=== PATIENT | male | born 1980 ===

== ENCOUNTER 2024-09-22 22:43 | Emergency (ER) | payer BC, SELFPAY ==
--- NOTE | ~2024-09-22 | XR_ITS ---
AP view of the pelvis and AP and lateral views of the right hip Clinical history: Pain Findings: There is a probable acute fracture isolated to the superior aspect of the right greater tro chanter. No other fracture or dislocation seen. Bilateral hip and SI joint spaces are preserved. Soft tissues are unremarkable. Impression: Probable acute fracture isolated to the superior aspect of the right greater trochanter. Reviewed, dictated and finalized at location . Impression: Probable acute fracture isolated to the superior aspect of the right greater tr ochanter.
--- NOTE | ~2024-09-22 | CT_ITS ---
Noncontrast CT scan of the right hip CLINICAL HISTORY: greater trochanter fracture TECHNIQUE: Axial noncontrast imaging of the right hip was performed. Sagittal and coronal reformatted images were constructed. Dose reduction technique was used on this scan by utilizing automated expos ure control and iterative reconstruction technique. The dose-length product (DLP) was 174.53 mGy-cm. FINDINGS: There is a transverse, essentially nondisplaced fracture isolated to the superior aspect of the right greater trochanter (coronal image 44 for example). No extension across the intertrochanter ic region or femoral neck. Right hip joint space is intact. No joint effusion. Visualized musculature unremarkable. No soft tissue mass or fluid collection seen. IMPRESSION: Acute fracture isolated to the superior aspect of the right greater trochanter, as detailed above. Reviewed, dictated and finalized at location M.
--- OUTSIDE RECORDS SUMMARY | 2024-09-22 22:44 | XMS_ITS | Encounter Summary ---
Author Organization [facility] Address [address] [place] [address] Phone Care Team Providers Care Medical Office Assistant Instructor Name Role Phone Sumaya Downing MD Unavailable Donal Bernard MD Primary Care Provider [phone] Provider, None Primary Care Provider Unavailabl e Reason for Visit * Reason Comments Medication Refill Encounter Details Date Type Department Care Team (Late st Contact Info) Description 02/08/2020 Refill [facility] - Endocrinology - [place] [address] [place] [address] Sumaya Downing MD [address] [address] Medication Refill Social History Tobacco Use Types Packs/Day Years Used Date Smoking Tobacco: Former Cigarettes Smokeless Tobacco: Never Alcohol Use Standard Drinks/Week Comments No 0 (1 standard drink = 0.6 oz pur e alcohol) Sexually Active Control Partners Comments Yes Female Sex and Gender Information Value Date Recorded Sex Assigned at Not on file Legal Sex Male 11:29 PM CDT Gender Identity Not on file Sexual Orientation Not on file documented as of this encounter Miscellaneous Notes * Telephone Encounter - Sandra Fernandez RN - 02/14/2020 11:24 AM MARINE UNDERWRITER Refill request received. Order pended. Requested Prescriptions Pending Prescriptions Disp Refills ??? insulin lispro (HumaLOG) 100 UNIT/ML Solution [Pharmacy Med Name: INSULIN LISPRO 100U/ML VIAL 10ML] 20 mL Sig: USE DIRECTED WITH INSULIN PUMP. MAX OF 50 UNIT PER DAY Next appt: Message left to schedule follow up. NE UNDERWRITER documented in this encounter Plan of Treatment Not on file documented as of this encounter Visit Diagnoses Not on filedocumented in this encounter Care Teams Medical Office Assistant Instructor Relationship Specialty Start Date End Date Donal Bernard MD [address] [place] [address] PCP - General Family Medicine 04/17/16 11/22/20 Provider, None MD PCP - General 11/23/20 Sumaya Downing MD [address] [address] Consulting Physician Internal Medicine 04/17/16 documented as of this encounter
--- OUTSIDE RECORDS SUMMARY | 2024-09-22 22:44 | XMS_ITS | Clinical Summary ---
Author Organization [facility] Address [address], [address] [address] Phone Care Team Providers Care Basket Filler Name Role Phone Sumaya Downing MD Unavailable Provider, None Primary Care Provider Unavailabl e Allergies No known active allergies Medications TRUEPLUS LANCETS 30G MiscIndication s:Type 1 diabetes mellitus without complication,H ypoglycemia Please monitor blood sugar before each meal, snack, and at bedtime 400 Each 3 04/23/19 17 Active Blood Glucose Monitoring Suppl (TRUE METRIX METER) w/Device KitIndications :Type 1 diabetes mellitus without complication,H ypoglycemia Please monitor blood sugar before each meal, snack, and at bedtime 1 Kit 0 04/23/19 17 Active TRUE METRIX BLOOD GLUCOSE TEST StripIndicatio ns:Type 1 diabetes mellitus without complication,H ypoglycemia MONITOR BLOOD SUGAR BEFORE EACH MEAL, SNACK, AND AT BEDTIME 400 Strip 08/29/19 18 Active Glucose Blood (OneTouch Verio) Strip Test blood glucose 4x daily. 400 Strip 3 01/02/20 21 Active Blood Glucose Monitoring Suppl (OneTouch Verio) w/Device Kit 1 Kit by Does not apply route daily. Test blood glucose 4x daily. 1 Kit 01/02/20 21 Active OneTouch Delica Lancets 33G Misc 1 Lancet by Does not apply route 4 times daily. 400 Lancet 3 01/02/20 21 Active Insulin Syringe-Needle U-100 (INSULIN SYRINGE .5CC/31GX5/16 ) 31G X 5/16 0.5 ML Misc 5 times a day 500 Each 3 05/11/19 22 Active Continuous Blood Gluc Sensor (Dexcom G7 Sensor) Misc Every 10 days 9 Each 1 04/09/19 24 Active Continuous Blood Gluc Independent Film Maker (Dexcom G7 Independent Film Maker) Device Check blood glucose before each meal and at bedtime 1 Each 04/09/19 24 Active Insulin Disposable Pump (Omnipod 5 G6 Intro, Gen 5,) Kit Change pod every 3 days 1 Kit 04/16/19 24 Active insulin glargine (Lantus) 100 UNIT/ML Solution 24 Units by Subcutaneous route daily. 10 mL 1 04/21/19 24 Active insulin lispro (HumaLOG) 100 UNIT/ML Solution PER INSULIN PUMP SETTINGS, UP TO 60 UNITS UNDER THE SKIN PER DAY 60 mL 1 07/17/19 25 Active Insulin Disposable Pump (Omnipod 5 UltT3W1 Pods Gen 5) Misc CHANGE EVERY 2 TO 3 DAYS 40 Each 1 08/28/19 25 Active Insulin Disposable Pump (Omnipod 5 G7 Pods, Gen 5,) Misc Every 2-3 days 45 Each 1 11/27/19 24 025 Discontinued Active Problems Problem Noted Date Diagnosed Date Tobacco use 06/29/2019 Insulin pump titration 08/13/2016 Type 1 diabetes mellitus without complication Encounters Date Type Department Care Team Description 08/23/2024 [facility]ill [facility] End[facility] [address] [place] [address] Sumaya Downing MD Medication Refill 07/14/2024 [facility]ill [facility] Endocr[facility] [address] [place] [address] Sumaya Downing MD Medication Refill from Last 3 Months Immunizations Immunization Administration Dates Next Due TDAP Vaccine 09/25/2021 Social History Tobacco Use Types Packs/Day Years Used Date Smoking Tobacco: Former Cigarettes Smokeless Tobacco: Never Tobacco Cessation:Counseling Given: No Alcohol Use Standard Drinks/Week Comments No 0 (1 standard drink = 0.6 oz pur e alcohol) Sexually Active Control Partners Comments Yes Female Sex and Gender Information Value Date Recorded Sex Assigned at Not on file Legal Sex Male 11:29 PM CDT Gender Identity Not on file Sexual Orientation Not on file Last Filed Vital Signs Vital Sign Reading Time Taken Comments Blood Pressure 132/74 11/27/2023 3:35 PM CDT Pulse 101 11/27/2023 3:35 PM CDT Temperature 36.6 C (97.8 F) 11/27/2023 3:35 PM CDT Respiratory Rate 20 11/27/2023 3:35 PM CDT Oxygen Saturation 97% 11/27/2023 3:35 PM CDT Inhaled Oxygen Concentration - - Weight 64.7 kg (142 lb 9.6 oz) 11/27/2023 3:35 P M CDT Height 170.2 cm (5' 7) 01/01/2021 10:33 AM USED CAR LOT ATTENDANT Body Mass Index 22.33 01/01/2021 10:33 AM USED CAR LOT ATTENDANT Plan of Treatment Health Maintenance Due Date Last Done Comments Diabetes: Eye Exam 1982 Diabetes: Foot Exam 1982 Hepatitis C Virus (HCV) Screening 1982 Hepatitis B Immunization (1 of 3 - 19+ 3-dose series) 2001 Pneumococcal Immunization Combined (1 of 2 - PCV) 2001 Human Papillomavirus (HPV) Immunization (1 - 3-dose SCDM series) 2009 Diabetes: Nephropathy Screening 01/15/2019 01/15/2018, 01/07/2017 SARS-COV-2 Immunization ( season) 2023 Diabetes: Hemoglobin A1c 05/27/2024 024, 04/08/2023, 01/01/2021, Additional history exists Influenza Immunization (#1) 2024 Td Immunization Every 10 Years (Adults With 1 Tdap) 09/26/2031 09/25/2021 Respiratory Syncytial Virus (RSV) Immunization (Adult) (1 - 1-dose 75+ series) 2057 DTaP/Tdap/Td Immunization Discontinued 09/25/2021 TdaP Immunization Discontinued 09/25/2021 Meningococcal Immunization (ACWY) Aged Out No longer eligible based on patient's age to complete this topic Rotavirus Immunization Aged Out No lo nger eligible based on patient's age to complete this topic Procedures Procedure Name Priority Date/Time Associated Diagnosis Comments POCT GLYCOSYLATED HEMOGLOBIN Routine 11/27/2023 3:39 PM CDT Type 1 diabetes mellitus without complication (HCC) CMP (COMPREHENSIVE METABOLIC PANEL) Routine 01/15/2018 11:26 AM USED CAR LOT ATTENDANT Type 1 diabetes mellitus without complication (HCC) from Last 3 Months or Most Recently Relevant to Health Maintenance Results * (ABNORMAL) POCT GLYCOSYLATED HEMOGLOBIN (11/27/2023 3:39 PM CDT) Pathologist [facility] HGB-A1C 8.8(A) 4 - 6 % Blood 11/27/2023 3:39 PM CDT Sumaya Downing MD POINT OF CARE TESTING (MANUAL) F inal Result * (ABNORMAL) CMP (COMPREHENSIVE METABOLIC PANEL) (01/15/2018 11:26 AM USED CAR LOT ATTENDANT) [facility] SODIUM 138 136 - 144 mmol/L 01/15/2018 3:04 PM [facility] POTASSIUM 5.3(H) 3.5 - 5.1 mmol/L 01/15/2018 3:04 PM [facility] CHLORIDE 100 100 - 110 mmol/L 01/15/2018 3:04 PM [facility] CO2, VENOUS 30 22 - 32 mmol/L 01/15/2018 3:04 PM [facility] ANION GAP 13.3 8.0 - 20.0 mmol/L 01/15/2018 3:04 PM [facility] GLUCOSE 287(H) 70 - 99 mg/dL 01/15/2018 3:04 PM [facility] BUN 10 6 - 20 mg/dL 01/15/2018 3:04 PM [facility] CREATININE, BLOOD 0.86 0.80 - 1.30 mg/dL 01/15/2018 3:04 PM [facility] BUN/CREATININE RATIO 12 12 - 20 ratio 01/15/2018 3:04 PM [facility] TOTAL PROTEIN 6.8 6.0 - 8.3 g/dL 01/15/2018 3:04 PM [facility] ALBUMIN 4.7 3.5 - 5.2 g/dL 01/15/2018 3:04 PM [facility] Comment: The colormetric methods used for the determination of Albumin may lead to falsely elevated test results in patients suffering from renal failure or insufficiency due to interference with other proteins. A/G RATIO 2.2(H) 1.0 - 2.0 01/15/2018 3:04 PM USED CAR LOT ATTENDANT [facility] CALCIUM 9.7 8.9 - 10.3 mg/dL 01/15/2018 3:04 PM USED CAR LOT ATTENDANT [facility] T BILI 0.6 <=1.2 mg/dL 01/15/2018 3:04 PM USED CAR LOT ATTENDANT [facility] SGOT (AST) 21 <=40 U/L 01/15/2018 3:04 PM [facility] SGPT (ALT) 16 <=41 U/L 01/15/2018 3:04 PM USED CAR LOT ATTENDANT [facility] ALKALINE PHOSPHATASE 90 40 - 130 U/L 01/15/2018 3:04 PM USED CAR LOT ATTENDANT [facility] GFR, EST. NONAFRICAN >60 >=60 01/15/2018 3:04 PM USED CAR LOT ATTENDANT [facility] GFR, EST. >60 >=60 018 3:04 PM [facility] Comment: Creatinine Clearance is the preferred criteria for selecting drug dose adjustments in renally impaired patients. The GFR is provided as additional pertinent clinical information. GFR is reported in mL/min/1.73 sq m. Blood specimen (specimen) Venipuncture / Unknown 01/15/2018 11:26 AM USED CAR LOT ATTENDANT 01/15/2018 2:14 PM USED CAR LOT ATTENDANT us Sumaya Downing MD CHEMISTRY ORDERABLES Final Resul t [facility] [address] [place] [address] from Last 3 Months or Most Recently Relevant to Health Maintenance Insurance MEDICAID [place] Care Teams Basket Filler Relationship Specialty Start Date End Date Provider, None [place] PCP - General 11/23/20 Sumaya Downing MD [address] [phone] Consulting Physician Internal Medicine 04/17/16
[2024-09-22 23:03] VITALS: BP 111/74; PULSE 85; RESP 18; TEMP 36.5; O2SAT 99
[2024-09-23 01:15] VITALS: BP 115/79; PULSE 73; RESP 16; TEMP 36.6; O2SAT 98
--- OUTSIDE RECORDS SUMMARY | 2024-09-23 01:36 | XMS_ITS | Encounter Summary ---
Author Organization [facility] Address [address] [place] [address] Phone Care Team Providers Care Electrician'S Helper Name Role Phone Sumaya Downing MD Unavailable Donal Bernard MD Primary Care Provider [phone] Provider, None Primary Care Provider Unavailabl e Reason for Visit * Reason Comments Medication Refill Encounter Details Date Type Department Care Team (Late st Contact Info) Description 02/08/2020 Refill [facility] - Endocrinology - [place] [address] [place] [address] Sumaya Downing MD [address] [address] Medication Refill Social History Tobacco [...] Sandra Fernandez RN - 02/14/2020 11:24 AM PHONE BANKER Refill request received. Order pended. Requested Prescriptions Pending Prescriptions Disp Refills ??? insulin lispro (HumaLOG) 100 UNIT/ML Solution [Pharmacy Med Name: INSULIN LISPRO 100U/ML VIAL 10ML] 20 mL Sig: USE DIRECTED WITH INSULIN PUMP. MAX OF 50 UNIT PER DAY Next appt: Message left to schedule follow up. E BANKER documented in this encounter Plan of Treatment Not on file documented as of this encounter Visit Diagnoses Not on filedocumented in this encounter Care Teams Electrician'S Helper Relationship Specialty Start Date End Date Donal Bernard MD [address] [place] [address] PCP - General Family Medicine 04/17/16 11/22/20 Provider, None MD PCP - General 11/23/20 Sumaya Downing MD [address] [phone] Consulting Physician Internal Medicine 04/17/16 documented as of this encounter
--- OUTSIDE RECORDS SUMMARY | 2024-09-23 01:37 | XMS_ITS | Clinical Summary ---
Author Organization [facility] Address [address], [address] [address] Phone Care Team Providers Care Clipper And Turner Name Role Phone Sumaya Downing MD Unavailable [...] 1 04/09/19 24 Active Continuous Blood Gluc Transportation Maintenance Operator (Dexcom G7 Transportation Maintenance Operator) Device Check blood glucose before each meal [...] 25 Active Insulin Disposable Pump (Omnipod 5 [id number] Pods Gen 5) Misc CHANGE EVERY 2 [...] Type Department Care Team Description 08/23/2024 [facility] [address] [place] [address] Sumaya Downing MD Medication Refill 07/14/2024 [facility] [address] [place] [address] Sumaya Downing MD Medication Refill from Last [...] 170.2 cm (5' 7) 01/01/2021 10:33 AM HORSE GROOMER Body Mass Index 22.33 01/01/2021 10:33 AM HORSE GROOMER Plan of Treatment Health Maintenance Due Date [...] (COMPREHENSIVE METABOLIC PANEL) Routine 01/15/2018 11:26 AM HORSE GROOMER Type 1 diabetes mellitus without complication (HCC) from Last 3 Months or Most Recently Relevant to Health Maintenance Results * (ABNORMAL) POCT GLYCOSYLATED HEMOGLOBIN (11/27/2023 3:39 PM CDT) Pathologist [facility] HGB-A1C 8.8(A) 4 - 6 % Blood 11/27/2023 3:39 PM CDT Sumaya Downing MD POINT OF CARE TESTING (MANUAL) F inal Result * (ABNORMAL) CMP (COMPREHENSIVE METABOLIC PANEL) (01/15/2018 11:26 AM HORSE GROOMER) [facility] SODIUM 138 136 - 144 mmol/L 01/15/2018 3:04 PM [facility] POTASSIUM 5.3(H) 3.5 - 5.1 mmol/L 01/15/2018 3:04 PM [facility] CHLORIDE 100 100 - 110 mmol/L 01/15/2018 3:04 PM [facility] CO2, VENOUS 30 22 - 32 mmol/L 01/15/2018 3:04 PM [facility] ANION GAP 13.3 8.0 - 20.0 mmol/L 01/15/2018 3:04 PM [facility] GLUCOSE 287(H) 70 - 99 mg/dL 01/15/2018 3:04 PM [facility] BUN 10 6 - 20 mg/dL 01/15/2018 3:04 PM [facility] CREATININE, BLOOD 0.86 0.80 - 1.30 mg/dL 01/15/2018 3:04 PM [facility] BUN/CREATININE RATIO 12 12 - 20 ratio 01/15/2018 3:04 PM [facility] TOTAL PROTEIN 6.8 6.0 - 8.3 g/dL 01/15/2018 3:04 PM [facility] ALBUMIN 4.7 3.5 - 5.2 g/dL 01/15/2018 3:04 PM [facility] Comment: The colormetric methods used for the determination of Albumin may lead to falsely elevated test results in patients suffering from renal failure or insufficiency due to interference with other proteins. A/G RATIO 2.2(H) 1.0 - 2.0 01/15/2018 3:[address] [facility] CALCIUM 9.7 8.9 - 10.3 mg/dL 01/15/2018 3:[address] [facility] T BILI 0.6 <=1.2 mg/dL 01/15/2018 3:[address] [facility] SGOT (AST) 21 <=40 U/L 01/15/2018 3:04 PM [facility] SGPT (ALT) 16 <=41 U/L 01/15/2018 3:[address] [facility] ALKALINE PHOSPHATASE 90 40 - 130 U/L 01/15/2018 3:[address] [facility] GFR, EST. NONAFRICAN >60 >=60 01/15/2018 3:[address] [facility] GFR, EST. >60 >=60 018 3:04 PM [facility] Comment: Creatinine Clearance is the preferred criteria for selecting drug dose adjustments in renally impaired patients. The GFR is provided as additional pertinent clinical information. GFR is reported in mL/min/1.73 sq m. Blood specimen (specimen) Venipuncture / Unknown 01/15/2018 11:26 AM HORSE GROOMER 01/15/2018 2:14 PM HORSE GROOMER us Sumaya Downing MD CHEMISTRY ORDERABLES Final Resul t [facility] [address] [place] [address] from Last 3 Months or Most Recently Relevant to Health Maintenance Insurance MEDICAID [place] Care Teams Clipper And Turner Relationship Specialty Start Date End Date Provider, None [place] PCP - General 11/23/20 Sumaya Downing MD [address] [phone] Consulting Physician Internal Medicine 04/17/16
--- NOTE | 2024-09-23 02:07 | ED.LOWEXIN ---
HPI - Extremity Injury (Lower) General Chief Complaint: Extremity Injury, Lower Stated Complaint: right hip pain Time Seen by Provider: 09/23/24 01:30 Source: patient Mode of arrival: ambulatory Limitations: no limitations History of Present Illness HPI Narrative: Patient with insulin-dependent diabetes mellitus presents with right hip pain. Friday he accidentally fell approximately 4 ft off of a ladder and landed on his right hip. He had a pocket knife in his pocket at that time and thus landed on this as well. He thought the pain would get better but it does not seem to be he. He reports a stabbing 3/10 in severity pain. He is not on anticoagulation. 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 He states that he is able to perform some hip flexion and extension but has tremendous difficulty with hip abduction/adduction i.e. swinging his leg. He says he intermittently has paresthesias in his toes. At home he has been taking 600 mg ibuprofen p.r.n.. He reports being slightly hard of hearing, does better when mouth not covered with mask. Related Data Home Medications ?Medication ?Instructions ?Recorded ?Confirmed ?Last Taken ?Type insulin lispro 100 unit/mL 1 sliding scale dose subcut 12/29/18 Unknown History subcutaneous solution (Humalog DIRECTED U-100 Insulin) Allergies Allergy/AdvReac Type Severity Reaction Status Date / Time No Known Allergies Allergy Verified 09/22/24 23:22 [facility] Past Medical History Medical History Type 1 diabetes Surgical History Surgical History (Updated 12/29/18 @ 08:06 by Keena Schneider) No significant past surgical history Social History Social History Smoking packs per day: 1 Smoking cigarettes per day: 20.0 Years smoked: 15 Smoking pack-years: 15.00 Smoking status: Current every day smoker Tobacco type: cigarettes Occupation/Education: occupation 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 Gender identity (if verbalized by the patient): Male Exam Narrative: GENERAL: Well-appearing, well-nourished, and in no acute distress. HEAD: Normocephalic, atraumatic. EYES: Non injected, non icteric ENT: Nares clear, no rhinorrhea or epistaxis. Gross auditory acuity intact. NECK: Supple. No meningismus. CHEST: Speaking in full sentences. No respiratory distress. HEART: Regular rate and rhythm. . ABDOMEN: Soft, nondistended. No rigidity or guarding. Not peritoneal EXTREMITIES: No lower extremity edema. Patient performs some R hip flexion. HIP/PELVIS: No tenderness to palpation of the hip. SKIN: Warm, dry, no rash. No overlying ecchymosis or laceration or abrasion. NEURO: No focal deficits. Alert and oriented. Answering questions. Following commands. Normal speech without aphasia or dysarthria. Observed standing and bearing weight though difficulty with R hip abduction/adduction. Sensation intact throughout leg. PSYCH: Normal mood and affect. Course Vital Signs Vital signs: Vital Signs Temperature 97.7 F 09/22/24 23:03 Pulse Rate 85 09/22/24 23:03 Respiratory Rate 18 09/22/24 23:03 Blood Pressure 111/74 09/22/24 23:03 Pulse Oximetry 99 09/22/24 23:03 Oxygen Delivery Room Air 09/22/24 23:03 Temperature 98 F 09/23/24 01:15 Pulse Rate 79 09/23/24 05:22 Respiratory Rate 18 09/23/24 05:22 Blood Pressure 122/77 09/23/24 05:22 Pulse Oximetry 100 09/23/24 05:22 Oxygen Delivery Room Air 09/23/24 01:15 MDM - Extremity Injury (Lower) MDM Narrative Medical decision making narrative: 44-year-old male with insulin-dependent diabetes mellitus reports continued right hip pain particularly posteriorly after falling approximately 4 ft off of a ladder on Friday and landing on his hip. Had a pocket knife in his pocket at the time so landed on this. In the emergency department they are afebrile with vital signs within normal limits. Hyperglycemia without anion gap acidosis. Pseudo hyponatremia. Urine with sterile pyuria and glucosuria. Plain film imaging shows trochanter fracture, isolated. Labs will be obtained. Patient does inquire to the nurse if it is really necessary for him to stay. Discussed patient with on-call orthopedic surgeon Dr. Mcclendon who requests that CT hip be performed. He notes that if this she continues to show an isolated nondisplaced trochanteric fracture, a it is reasonable for patient to be discharged with crutches and partial weight-bearing status and follow-up in the office. CT performed as below. Patient provided crutches and crutch training. Discharged with prescriptions for analgesic medications including opiates for breakthrough pain. Given contact information for orthopedic surgeon and advised to call in the morning to make an appointment. He verifies understanding and is in agreement with the plan. Given return precautions as well. Otherwise stable for discharge. Differential Diagnosis Differential diagnosis: Likely fracture of femur, fracture of hip and other (Bony contusion, labral tear, hematoma) Lab Data Attestation: I reviewed the patient's lab results. 09/23/24 02:40 09/23/24 02:40 Labs: Lab Results 09/23/24 09/23/24 Range/Units 02:40 02:47 WBC 5.0 (4.5-10.0) K/mm3 RBC 3.99 L (4.6-6.20) M/mm3 Hgb 11.8 L (14.0-18.0) g/dL Hct 35.8 L (42.0-52.0) % MCV 89.7 (80-100) fl MCH 29.6 (26-34) pg MCHC 33.0 (32-36) g/dl RDW 12.3 (11.5-14.5) % Plt Count 173 (150-375) k/mm3 MPV 9.5 (7.4-10.4) fl Immature Gran % (Auto) 0.4 (0-0.5) % Neut % (Auto) 57.2 (45.5-73.1) % Lymph % (Auto) 30.6 (18.3-44.2) % Eddy % (Auto) 8.4 (2.6-8.5) % Eos % (Auto) 2.4 (0-4.4) % Baso % (Auto) 1.0 (0.2-1.2) % Lymph # (Auto) 1.53 (0.9-3.2) K/mm3 Eddy # (Auto) 0.4 (0.1-0.6) K/mm3 Eos # (Auto) 0.1 (0-0.3) K/mm3 Baso # (Auto) 0.1 (0.0-0.1) K/mm3 Abs Immat Gran (auto) 0.02 (0.00-0.031) K/mm3 Absolute Neuts (auto) 2.9 (1.3-6.7) K/mm3 Absolute Nucleated RBC 0.000 (0.0-0.012) K/mm3 Nucleated RBC % 0.0 (0.0-0.2) % PT 13.8 (11.1-14.7) Seconds INR 1.1 APTT 29.5 (22.3-36.8) Seconds Sodium 134 L (137-145) mmol/L Potassium 4.4 (3.4-5.0) mmol/L Chloride 101 (98-107) mmol/L Carbon Dioxide 28 (22-30) mmol/L Anion Gap 5 (4-12) mmol/L BUN 10 (9-20) mg/dL Creatinine 0.89 (0.7-1.3) mg/dL Estim Creat Clear Calc 88 ml/min Estimated GFR > 60 (59 - ) Glucose 330 H (65-110) mg/dL Calcium 8.8 (8.4-10.2) mg/dL Urine Color Yellow (Yellow) Urine Appearance Cloudy H (Clear) Urine pH 6.0 (5.0-9.0) Ur Specific Adams 1.011 (1.001-1.035) Urine Protein Negative (Negative) mg/dL Urine Glucose (UA) 3+ H (Negative) mg/dL Urine Ketones Negative (Negative) mg/dL Ur Blood (Man) Negative (Negative) Urine Nitrate Negative (Negative) Urine Bilirubin Negative (Negative) Urine Urobilinogen 0.2 (<2.0) mg/dL Leukocyte Esterase Rfl 2+ H (Negative) SHALOM/UL Urine RBC 0-2 (0-2) /hpf Urine WBC 21-50 H (0-3) /hpf Ur Squamous Epith Cells None seen (Few) /hpf Urine Bacteria None seen /hpf Urine Casts 0-2 Blood Type A Positive Antibody Screen Negative Imaging Data Attestation: I personally reviewed and interpreted this imaging study as follows: Radiologist's impression: XR Hip & Pelvis RT 2-3 v Stat Rad: There is a nondisplaced fracture of the right greater trochanter. No other fracture. No dislocation. No incidental findings. CT R Hip Stat Rad: There is acute avulsion fracture of the greater trochanter of the femur. No dislocation of the right hip joint. No evidence of hip joint effusion. Discharge Plan Discharge Clinical Impression: Fall from ladder, Hyperglycemia due to type 1 diabetes mellitus, Pseudohyponatremia, Normocytic anemia, Glucosuria Closed fracture of greater trochanter of right femur Qualifiers: Encounter type: initial encounter Fracture alignment: nondisplaced Qualified Code(s): S72.114A - Nondisplaced fracture of greater trochanter of right femur, initial encounter for closed fracture Patient Disposition: Home Condition: Stable Instructions: Antibiotic Form, Crutch Instructions (ED), Narcotic Safety (ED), Anemia (ED), Fall Prevention (ED), Diabetic Hyperglycemia (ED), Hip Fracture (ED), Avulsion Fracture (ED) Additional Instructions: You are to be partial weight-bearing with crutches. Maintain good glycemic control by using your insulin. Acetaminophen/Tylenol (maximum 4000 mg per day) is safe to take with NSAIDs (ibuprofen/Motrin) for pain relief. For breakthrough pain, short course of opiate/narcotic medications has been prescribed. Follow-up with the orthopedic surgeon listed below. Call the office in the morning to schedule appointment. Return to the emergency department with any new or worsening symptoms. Patient Language: Belarusian Prescriptions: New ibuprofen 600 mg tablet 600 mg PO TID PRN (Reason: pain) Qty: 30 0RF acetaminophen 500 mg capsule 1,000 mg PO Q6H PRN (Reason: pain) Qty: 30 0RF oxycodone 5 mg tablet 5 mg PO Q8H PRN (Reason: pain) Qty: 14 0RF No Action insulin lispro [Humalog U-100 Insulin] 100 unit/mL solution 1 sliding scale dose SUB-Q DIRECTED Rx Instructions: Insulin Pump. Max dose of 50 units daily. Follow-up/Referrals: Nabor Mcclendon MD [Physician] - UNKNOWN,DOCTOR [Primary Care Provider] - Stand Alone Forms: Work/School Release IP Time of Disposition: 05:03
[2024-09-23] MEDS: HYDROcodone/acetaminophen (*CRX) 5-325 MG TABLET 1 TAB PO (02:11)
[2024-09-23 02:44] VITALS: BP 116/87; PULSE 85; RESP 18; O2SAT 99
[2024-09-23 02:51] LABS: Hematocrit 35.8 % (42.0-52.0); Hemoglobin 11.8 g/dL (14.0-18.0); Immature Granulocyte Percent A 0.4 % (0-0.5); Lymphocytes Absolute Auto 1.53 K/mm3 (0.9-3.2); Mean Corpuscular HGB Conc 33.0 g/dl (32-36); Mean Corpuscular Hemoglobin 29.6 pg (26-34); Mean Corpuscular Volume 89.7 fl (80-100); Nucleated Red Blood Cells Absolute Auto 0.000 K/mm3 (0.0-0.012); Nucleated Red Blood Cells Perc 0.0 % (0.0-0.2); Platelet Count Result 173 k/mm3 (150-375); Red Blood Count 3.99 M/mm3 (4.6-6.20); White Blood Count 5.0 K/mm3 (4.5-10.0)
[2024-09-23 03:03] LABS: Anion Gap 5 mmol/L (4-12); Blood Urea Nitrogen 10 mg/dL (9-20); Calcium 8.8 mg/dL (8.4-10.2); Carbon Dioxide 28 mmol/L (22-30); Chloride 101 mmol/L (98-107); Estimated CRCL calculation 88 ml/min; Estimated Glomerular Filt Rate > 60; Glucose 330 mg/dL (65-110); Potassium 4.4 mmol/L (3.4-5.0); Sodium 134 mmol/L (137-145)
[2024-09-23 03:28] LABS: Add Urine Microscopic? YES; Appearance Urine Cloudy (Clear); Glucose Urine UA 3+ mg/dL (Negative); Leukocyte Esterase Ur 2+ LEU/UL (Negative); Nitrate Urine Negative (Negative); Non Pathogenic Casts 0-2; Specific Grav Ur 1.011 (1.001-1.035)
[2024-09-23 03:33] LABS: INR 1.1; Prothrombin Time 13.8 Seconds (11.1-14.7)
[2024-09-23 03:34] LABS: Partial Thromboplastin Time 29.5 Seconds (22.3-36.8)
--- NOTE | 2024-09-23 04:34 | PC.NURSE ---
MD Davalos verbally states to hold off on IV and confirmation blood draw at this time while waiting for results of CT scan cause results will depend if pt gets discharged or admitted to hospital.
[2024-09-23 05:22] VITALS: BP 122/77; PULSE 79; RESP 18; O2SAT 100
== END 2024-09-23 05:23 | disposition home or self-care (01) ==
PROVIDERS: Emergency Provider Student in an Organized Health Care Education/Training Program
DX: S72.114A Nondisplaced fracture of greater trochanter of right femur, initial encounter for closed fracture (principal); E10.65 Type 1 diabetes mellitus with hyperglycemia; R81 Glycosuria; D64.9 Anemia, unspecified; F17.210 Nicotine dependence, cigarettes, uncomplicated; Z79.4 Long term (current) use of insulin; W11.XXXA Fall on and from ladder, initial encounter
CPT/HCPCS: 36415; 73502; 73700; 80048; 81001; 85025; 85610; 85730; 86850; 86900; 86901; 87086; 99284; A9270